=== PATIENT | male | born 1965 | race Caucasian/White ===

== ENCOUNTER 2023-05-18 03:38 | Emergency (ER) | payer OTHER ==
[~2023-05-18] VITALS: Ht 185.4 cm; Wt 113.4 kg
[2023-05-18 04:17] VITALS: BP_SYST 158; PULSE 110; RESP 18; TEMP 97.2; O2SAT 94
[2023-05-18 04:57] LABS: BASOPHILS # (AUTO) 0.1 K/uL (0.0-0.2); BASOPHILS % (AUTO) 1.5 % (0.0-2.0); EOSINOPHILS # (AUTO) 0.1 K/uL (0.0-0.4); EOSINOPHILS % (AUTO) 1.4 % (0.0-4.0); HEMATOCRIT 46.8 % (36-54); HEMOGLOBIN 15.5 g/dL (14.0-18.0); LYMPHOCYTES # (AUTO) 2.3 K/uL (1.0-5.5); LYMPHOCYTES % (AUTO) 41.4 % (20.5-51.5); MEAN CORPUSCULAR HEMOGLOBIN 30 pg (27-31); MEAN CORPUSCULAR HGB CONC 33 % (32-36); MEAN CORPUSCULAR VOLUME 92 fL (79.0-98.0); MONOCYTES # (AUTO) 0.7 K/uL (0.0-1.0); MONOCYTES % (AUTO) 12.2 % (1.7-9.3); NEUTROPHILS # (AUTO) 2.5 K/uL (1.8-7.7); NEUTROPHILS % (AUTO) 43.5 % (40.0-70.0); PLATELET COUNT (AUTO) 217 K/uL (130-430); RED BLOOD CELL COUNT(AUTO) 5.12 MIL/uL (4.2-6.2); RED CELL DISTRIBUTION WIDTH 12.9 % (9.0-15.0); WHITE BLOOD COUNT (AUTO) 5.6 K/uL (4.8-10.8)
[2023-05-18 05:13] LABS: PROTHROMBIN TIME 10.6 SECS (9.5-12.5)
[2023-05-18 05:15] LABS: CALCIUM 8.6 mg/dL (8.4-11.0); CREATININE 1.05 mg/dL (0.55-1.30); POTASSIUM 3.4 mmol/L (3.5-5.1)
[2023-05-18] MEDS ORDERED: POTASSIUM CHLORIDE 20 MEQ/PKT PACKET PO ONE (06:00)
[2023-05-18] MEDS ORDERED: CEPH250C PO (06:17)
[2023-05-18 06:27] VITALS: BP_SYST 140; PULSE 95; RESP 18; TEMP 97.8; O2SAT 95
== END 2023-05-18 06:27 | disposition home or self-care (01) ==
LOC: SED 03:38
DX: R04.0 Epistaxis (principal); Z79.899 Other long term (current) drug therapy
CPT/HCPCS: 36415; 80048; 85025; 85610-TC; 85730-TC; 99283